=== PATIENT | female | born 1940 | race Hispanic/Latino ===

== ENCOUNTER 2024-06-17 16:51 | Inpatient (IN) | payer MEDICARE ==
[~2024-06-17] VITALS: Ht 162.6 cm; Wt 47.6 kg
[2024-06-17 17:40] LABS: BASOPHILS # (AUTO) 0.04 K/uL (0.00-0.20); BASOPHILS % (AUTO) 0.6 % (0.0-5.0); EOSINOPHILS # (AUTO) 0.22 K/uL (0.00-0.70); EOSINOPHILS % (AUTO) 3.5 % (0.0-8.0); HEMATOCRIT 37.3 % (36-48); IMMATURE GRANULOCYTE ABSOLUTE 0.02 K/uL (0-1); LYMPHOCYTES # (AUTO) 1.8 K/uL (1.0-4.8); LYMPHOCYTES % (AUTO) 27.8 % (21.0-51.0); MEAN CORPUSCULAR HEMOGLOBIN 32.1 pg (27.0-33.0); MEAN CORPUSCULAR HGB CONC 32.2 g/dL (32.0-36.0); MEAN CORPUSCULAR VOLUME 99.7 fL (79-99); MONOCYTES # (AUTO) 0.5 K/uL (0.1-1.0); NEUTROPHILS # (AUTO) 3.8 K/uL (1.8-7.7); NEUTROPHILS % (AUTO) 59.8 % (40.0-77.0); PLATELET COUNT (AUTO) 178 K/uL (130-400); RED BLOOD CELL COUNT(AUTO) 3.74 MIL/uL (4.00-5.50); RED CELL DISTRIBUTION WIDTH 13.6 % (11.0-15.5); WHITE BLOOD COUNT (AUTO) 6.4 K/uL (4.8-10.8)
--- NOTE | 2024-06-17 17:44 | EKG ---
[facility] Test Date: 2024-06-17 Test Time: 16:58:30 Pat Name: RAMA NAIR Department: ED Room: 426 Gender: F Solution Specialist: [id number] Requested By: AMEE MITCHELL Order Number: [id number] Reading MD: Solomon Mann Measurements Intervals [place] Rate: 73 P: 74 NV: 136 QRS: 126 QRSD: 95 T: 147 QT: 410 QTc: 454 Interpretive Statements Atrial-sensed ventricular-paced rhythm Biventricular paced rhythm No previous ECG available for comparison Electronically Signed On 06-18-2024 13:16:06 CDT by Solomon Mann Please click the below link to view image of tracing.
--- NOTE | 2024-06-17 17:44 | ERN ---
General Chief Complaint: AICD FIRED OR SHOCKED Stated Complaint: SHOCK FROM PACEMAKER Time Seen by MD: 17:04 History of Present Illness Initial Comments Ms. Chacon is a very pleasant 84-year-old female significant past medical history of heart failure with a reduced ejection fraction status post ICD placement and prior MS in 2012 presented to the ED after reported ICD shock. The event occurred approximately 1 hour prior to arrival when she was about to eat a hamburger. She states she felt a shock in her hand and was not associated with chest pain, shortness of breath, palpitations syncope. She denies any trauma or dizziness or neurological symptoms. She says this is her 2nd AICD with the most recent device placed only a few months ago with a new battery. She is currently visiting from [facility] and follows with Dr. Hwang of [facility]. Patient has had no recent medication changes. Allergies: Coded Allergies: No Known Drug Allergies (Unverified Allergy, Unknown, 06/18/24) Home Meds Active Scripts Amiodarone HCl (Amiodarone HCl) 200 Mg Tablet, 200 MG PO BID, #60 TAB 3 Refills Prov:HI WHITE MD 06/19/24 Reported Medications Apixaban (Eliquis) 2.5 Mg Tablet, 1 TAB PO BID for 30 Days, #60 TAB 0 Refills 06/18/24 Cholecalciferol (Vitamin D3) (Vitamin D3) 250 Mcg (67016 Unit) Capsule, 1 CAP PO DAILY for 30 Days, #30 CAP 0 Refills 06/18/24 Metoprolol Succinate (Metoprolol Succinate) 50 Mg Tab.er.24h, 1 TAB PO BID for 30 Days, #30 TAB 0 Refills 06/18/24 Sertraline HCl (Sertraline HCl) 50 Mg Tablet, 1 TAB PO DAILY for 30 Days, #30 TAB 0 Refills 06/18/24 Aspirin (Aspirin EC) 81 Mg Tablet., 1 TAB PO DAILY for 30 Days, #30 TAB 0 Refills 06/18/24 Sacubitril/Valsartan (Entresto 24 mg-26 mg Tablet) 24 Mg-26 Mg Tablet, 1 TAB PO BID for 30 Days, #60 TAB 0 Refills 06/18/24 Empagliflozin (Jardiance) 10 Mg Tablet, 10 MG PO DAILY, TAB 06/18/24 Ubidecarenone (Coq10) 50 Mg Tab.chew, 100 MG PO AM, TAB.CHEW 06/18/24 Atorvastatin Calcium (LIPITOR) 80 Mg Tablet, 1 TAB PO DAILY for 30 Days, #30 TAB 0 Refills 06/18/24 Gabapentin (Gabapentin) 100 Mg Capsule, 300 MG PO TID, CAP 06/18/24 Ranolazine (Ranolazine ER) 500 Mg Tab.er.12h, 1 TAB PO BID for 30 Days, #60 TAB 0 Refills 06/18/24 Past Medical History Past Medical History: CHF, High Cholesterol, Heart Disease, Hypertension, MS Past Surgical History: Hysterectomy, Pacer/AICD ROS Dictation Constitutional: Negative for fever,chills, and weight loss Eyes: Negative for injury, pain,redness, and discharge ENT: Negative for injury,pain or swelling Cardiovascular: Positive AICD shock today Abdomen/GI: Negative for abdominal pain, nausea, vomiting, diarrhea, and constipation Back: Negative for injury and pain : Negative for injury, bleeding and discharge MS/Extremity: Negative for injury and deformity Skin: Negative for rash, and discoloration Neuro: Negative for headache, weakness, numbness, tingling, and seizure Psych: Negative for suicide ideation, homicidal ideation, and hallucinations Physical Exam Physical Exam Dictation General: awake, alert, NAD Head/Face: Normocephalic, atraumatic Eyes: PERRL, EOMI, vision at baseline ENT: oral cavity clear, TMs clear, no signs of infection Neck: Trachea midline, supple, no nuchal rigidity Cardiovascular: RRR, normal S1/S2, No MRGs, no JVD, AICD and left chest no t rauma camacho at the site of the ICD Respiratory: CTAB, no respiratory distress, No rales or wheezes Abdomen: Soft, non-tender, non-distended, normal bowel sounds, no guarding or rebound. Skin: Warm, dry, normal turgor, no rash MS/Extremity: Pulses equal, no cyanosis, neurovascular intact, FROM Neuro: COAx4, GCS 15, strength 5/5, CN 2-12 intact, normal cerebellar exam, normal gait, Psych: Normal behavior, mood, and affect normal Results Laboratory and Microbiology Lab and Micro Result Laboratory Tests Test 06/17/24 17:28 White Blood Count 6.4 K/uL (4.8-10.8) Red Blood Count 3.74 MIL/uL (4.00-5.50) L Hemoglobin 12.0 g/dL (12.0-16.0) Hematocrit 37.3 % (36-48) Mean Corpuscular Volume 99.7 fL (79-99) H Mean Corpuscular Hemoglobin 32.1 pg (27.0-33.0) Mean Corpuscular Hemoglobin Concent 32.2 g/dL (32.0-36.0) Red Cell Distribution Width 13.6 % (11.0-15.5) Platelet Count 178 K/uL (130-400) Mean Platelet Volume 9.5 fL (7.5-10.5) Immature Granulocyte % (Auto) 0.3 % (0-1) Neutrophils (%) (Auto) 59.8 % (40.0-77.0) Lymphocytes (%) (Auto) 27.8 % (21.0-51.0) Monocytes (%) (Auto) 8.0 % (3.0-13.0) Eosinophils (%) (Auto) 3.5 % (0.0-8.0) Basophils (%) (Auto) 0.6 % (0.0-5.0) Neutrophils # (Auto) 3.8 K/uL (1.8-7.7) Lymphocytes # (Auto) 1.8 K/uL (1.0-4.8) Monocytes # (Auto) 0.5 K/uL (0.1-1.0) Eosinophils # (Auto) 0.22 K/uL (0.00-0.70) Basophils # (Auto) 0.04 K/uL (0.00-0.20) Absolute Immature Granulocyte (auto 0.02 K/uL (0-1) Nucleated Red Blood Cells 0.0 % (0.0-0.19) Sodium Level 141 mmol/L (136-145) Potassium Level 4.0 mmol/L (3.5-5.1) Chloride Level 107 mmol/L (101-111) Carbon Dioxide Level 28 mmol/L (21-32) Blood Urea Nitrogen 14 mg/dL (7-18) Creatinine 1.0 mg/dL (0.5-1.0) Glomerular Filtration Rate Calc 55 mL/min (>90) Random Glucose 97 mg/dL (70-105) Total Calcium 8.3 mg/dL (8.5-10.1) L Total Creatine Kinase 67 U/L (21-232) Troponin I High Sensitivity 18.0 ng/L (4-50) B-Type Natriuretic Peptide 237 pg/mL (0-100) H MDM MDM: Differential diagnosis: Arrhythmia, inappropriate shock, new coronary event Rationale: Tests considered and ordered secondary to shared decision making include: Previous outside records reviewed: Old ER visits. Risk of complication and/or morbidity or mortality of patient management: None Medications-Per medication reconciliation Need for hospitalization: Patient does not meet criteria for hospitalization. Need for emergency major/minor surgery: No There are no social concerns with this patient. Prescription drug management Prescriptions will include symptomatic care Patient's prior external medical records from other ER visits were reviewed by me as indicated. Prior testing and results from previous visits were reviewed. Prior tests were taken into account with medical decision making and resource utilization, independent historian/historians were used to obtain complete medical history. I independently interpreted the test that were performed, results were reviewed by me and considered findings on radiology if ordered. Medical management and examination interpretation discussions were had by me with other qualified healthcare professionals as indicated for the patient's care. ED Course Orders Procedure Category Date Status Time O2 Nc Keep Sats CPOE 06/17/24 Transmitted Greater 92% 17:12 Notify Md: Spo2 < 88% CPOE 06/17/24 Transmitted 17:12 Cbc With Differential LAB 06/17/24 Complete 17:12 B-Type Natriuretic LAB 06/17/24 Complete Peptide 17:12 Cardiac Panel LAB 06/17/24 Complete 17:12 Chest 1vw RAD 06/17/24 Resulted 17:12 12 Lead Ekg Tracing- EKG 06/17/24 Resulted Technical 17:12 Basic Metabolic Panel LAB 06/17/24 Complete 17:12 Edm Admit Bridge Order ADM 06/17/24 Transmitted 23:01 Vital Signs Date Time Temp Pulse Resp B/P (MAP) Pulse Ox O2 Delivery O2 Flow Rate FiO2 06/17/24 21:46 76 15 149/62 98 Room Air* 0 21 06/17/24 21:22 98.6 65 17 124/59 98 Room Air* 0 21 06/17/24 20:09 98.6 70 19 128/59 96 Room Air* 0 21 06/17/24 17:42 98.1 67 18 131/64 97 Room Air* 0 21 06/17/24 17:01 98.2 63 17 146/66 97 Room Air 0 7:00 p.m. patient was signed out to me by a.m. physician. This is an 84-year-old female with known history of atrial fibrillation and flutter on Eliquis, metoprolol and Entresto apparently was at dinner with her and eating a hamburger when she experienced an ICD shock. No syncope chest pain. No shortness of breath no other symptoms of nausea vomitings diaphoresis Vital signs are 98.2/63/17/140 6/66 and 97% on room air Her chronic medical problems include hypertension, coronary artery disease, congestive heart failure, hypercholesterolemia and history of smoking. Labs reviewed CBC BNP 7 are within normal limits brain natriuretic peptide is 237 troponins are negative chest x-ray is unremarkable for any acute infiltrate EKG showed rate controlled with heart rates of around 63-66. Interrogation of the cardiac device was done which showed an episode of atrial fibrillation and a flutter with rapid ventricular response transiently that triggered the episode of shock. Although it is recognized it as a VFib. Patient received gentle hydration and all electrolytes are with a normal limits. 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 I answered all the questions. Patient returned within an hour and a half stating that she received additional ICD shocks and a decision was made to admit her to the hospital 11:00 p.m.-patient accepted by [facility] mid-level provider for admission and further management Problem List Problem Lists: (1) Atrial fibrillation and flutter (2) Inappropriate discharge of implantable cardioverter-defibrillator (ICD) DX & DISP Disposition: Inpatient Departure Impression: Primary Impression: Atrial fibrillation and flutter Additional Impression: Inappropriate discharge of implantable cardioverter- defibrillator (ICD) Condition: Stable Scripts Amiodarone HCl (Amiodarone HCl) 200 Mg Tablet 200 MG PO BID, #60 TAB 3 Refills Prov: HI WHITE MD 06/19/24 Additional Instructions: Patient was informed of all the diagnostic labs and procedures conducted in the emergency room today and demonstrated understanding of the results. I personally reviewed and interpreted all the diagnostic exams performed in the ER today. The patient will be admitted to the hospital for further treatment and evaluation. Disposition-admit to facility Condition-stable/guarded Course-uncertain at this time Pain status-decreased Assessment-exam unchanged Admission Certification- I certify that the patients status is appropriate and is based on my best clinical judgment and the patient's condition as documented in the medical records Referrals: SELF,REFERRAL (PCP) AMEE MITCHELL MD June 17, 2024 17:44 YESSI LYN MD June 17, 2024 20:43
[2024-06-17 18:01] LABS: B-TYPE NATRIURETIC PEPTIDE 237 pg/mL (0-100)
--- NOTE | 2024-06-17 18:16 | HMCIMG ---
Exam Type: CHEST 1VW Clinical Information: Dyspnea/SOB Comparison: None Findings: The lungs are clear of infiltrates. The heart is enlarged in size. The bony and soft tissue structures of the chest are unremarkable. Left cardiac pacemaker is noted with leads in place. Impression: Clear lungs.
--- NOTE | 2024-06-17 19:08 | NUR ---
[facility] ROMO WAS CALLED IN REFERNECE TO US BEING UNABLE TO INTERROGATE HER DEVICE D/T THE DEVICE NOT PICKING UP WIFI FOR A REPORT TO GENERATE. HE SAID HE WOULD BE IN SHORTLY TO ASSESS THE SITUATION AND DEVICE WELL AICD.
--- NOTE | 2024-06-17 19:34 | NUR ---
[facility] PACER REP IN ROOM TO INTERROGATE DEVICE
--- NOTE | 2024-06-17 21:40 | NUR ---
PATIENT REPORTS DEFIBRILATOR FIRED AGAIN AFTER BEING DISCHARGED SHE WAS GETTING INTO CAR. LIFTED HER LEFT ARM AND FELT IT GO OFF. REPORTS LAST EPISODE HAPPENED WHEN SHE LEFTED HER ARM TO TAKE A BITE OF A HAMBURGER
--- NOTE | 2024-06-17 23:00 | HP ---
[facility] HISTORY AND PHYSICAL Date of Service: June 17, 2024 Time of Service: 23:00 PCP: Self-referral HISTORY OF PRESENT ILLNESS: This is an 84-year-old female a resident from [facility] a reliable historian with past medical history of CHF with AICD, hypertension, hyperlipidemia and DC/ CAD with cardiac stent X3 in 2012 who presents to the ED for complaints of AICD shock around 4 pm today when she tried to eat hamburger using her left upper extremity she felt the shock in her hand .As patient was going home from ER visit she felt the shock again as she was using her left upper extremity to reach for something in the car and the shock was painful she said so she decided to come back to the ED,thus prompted this admission.Patient reports this is the second AICD with the most recent device placed few months ago with a new battery.Patient reports 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 Seen and examined patient in the ER awake,alert and coherent, appears comfortable. Patient denies chest pain, palpitation, shortness for breath, syncope, nausea and vomiting. Latest vital signs temperature 98.4, heart rate 72, blood pressure 148/79 saturation 96% on room air. Labs CBC unremarkable BNP 237 the rest of the chemistries unremarkable. EKG result revealed atrial sensed ventricular paced rhythm, ventricular paced rhythm heart rate 73. Chest x-ray result is normal. While in the ER patient AICD was reportedly interrogated which showed an episode of atrial fibrillation and a flutter with RVR that triggers episode of shock. We will admit patient for further medical management. REVIEW OF SYSTEMS CONSTITUTIONAL: Denies fevers, chills, or night sweats. No unintentional weight loss reported. NEUROLOGICAL: Denies headache, amaurosis fugax, motor weakness, sensory deficit, vertigo/spinning sensation, gait abnormalities, or tremors. ENT: No hearing loss, otalgia, otorrhea, rhinitis, rhinorrhea, hoarseness, or sore throat. CARDIOVASCULAR: Denies any exertional angina, dyspnea on exertion, orthopnea, paroxysmal nocturnal dyspnea, palpitations, life-threatening arrhythmias, claudication. PULMONARY: Denies any shortness of breath, cough, phlegm/sputum, hemoptysis, pleuritic chest pain. SLEEP: Denies morning headaches, daytime somnolence or napping. Denies difficulty falling asleep, staying asleep, waking from sleep. Denies knowledge of snoring. GASTROINTESTINAL: Denies any type of dysphagia to either liquids or solids. Denies nausea, vomiting, pyrosis, early satiety, abdominal pain, diarrhea, constipation, or changes in stool consistency or caliber. Denies coffee-ground emesis, hematemesis, hematochezia, or melanotic stools. GENITOURINARY: Denies frequency, urgency, nocturia, hematuria or incontinence (Storage/Irritative symptoms.) Low urinary stream, straining to void, urinary i ntermittency or hesitancy, splitting of the voiding stream, terminal dribbling. ENDOCRINOLOGIC: Denies polyuria, polydipsia, polyphagia or heat/cold intolerances. HEMATOLOGIC: Denies thrombophilia/previous clots, or coagulopathy/bleeding disorders. ONCOLOGIC: Denies personal history of malignancy. DERMATOLOGIC: Denies rashes or pruritus. PSYCHIATRIC: Denies any suicidal or homicidal ideation. Denies hallucinations. PAST MEDICAL HISTORY: [ CHF hypertension, hyperlipidemia and DC/ CAD with cardiac stent X3 in 2012 ] PAST SURGICAL HISTORY: [ Pacer/AICD, cardiac stent x3, hysterectomy] PAST SOCIAL HISTORY: [ Patient lives with . Patient is from [facility]. Patient denies alcohol tobacco and recreational drug use ] FAMILY HISTORY: [Noncontributory ] Coded Allergies: No Known Drug Allergies (Unverified Allergy, Unknown, 06/18/24) PHYSICAL EXAM GENERAL APPEARANCE: The patient is awake, alert, and oriented, in no acute cardiopulmonary distress. NEUROLOGICAL: Cranial nerves II-XII grossly intact. Motor is 5/5 in bilateral upper and lower extremities proximal to distal. No sensory deficits. HEENT: Face is symmetric. Pupils are equal and reactive. Extraocular movements are intact. NECK: Supple. No JVD. No thyromegaly. No submental, submandibular, pre- /postauricular, occipital or supraclavicular lymphadenopathy. CHEST: Normal chest expansion. No Telemetry. LUNGS: Absence of any rales, rhonchi or any wheezing. CARDIOVASCULAR: Regular. S1 and S2 normal. No appreciable rubs, murmurs or gallops. ABDOMEN: Soft, nontender, and nondistended. There is no rebound, voluntary guarding, or rigidity. : Deferred. No Osorio. EXTREMITIES: Non-edematous and not cyanotic. No clubbing. Good capillary refill. SKIN: No skin breakdown. Vital Sign (Last 24 Hours) 06/17/24 06/17/24 21:22 21:46 Temp 98.6 Pulse 76 Resp 15 B/P (MAP) 149/62 Pulse Ox 98 O2 Delivery Room Air* O2 Flow Rate 0 FiO2 21 LABS: Laboratory: Test 06/17/24 17:28 Range/Units White Blood Count 6.4 4.8-10.8 K/uL Red Blood Count 3.74 L 4.00-5.50 MIL/uL Hemoglobin 12.0 12.0-16.0 g/dL Hematocrit 37.3 36-48 % Mean Corpuscular Volume 99.7 H 79-99 fL Mean Corpuscular Hemoglobin 32.1 27.0-33.0 pg Mean Corpuscular Hemoglobin Concent 32.2 32.0-36.0 g/dL Red Cell Distribution Width 13.6 11.0-15.5 % Platelet Count 178 130-400 K/uL Mean Platelet Volume 9.5 7.5-10.5 fL Immature Granulocyte % (Auto) 0.3 0-1 % Neutrophils (%) (Auto) 59.8 40.0-77.0 % Lymphocytes (%) (Auto) 27.8 21.0-51.0 % Monocytes (%) (Auto) 8.0 3.0-13.0 % Eosinophils (%) (Auto) 3.5 0.0-8.0 % Basophils (%) (Auto) 0.6 0.0-5.0 % Neutrophils # (Auto) 3.8 1.8-7.7 K/uL Lymphocytes # (Auto) 1.8 1.0-4.8 K/uL Monocytes # (Auto) 0.5 0.1-1.0 K/uL Eosinophils # (Auto) 0.22 0.00-0.70 K/uL Basophils # (Auto) 0.04 0.00-0.20 K/uL Absolute Immature Granulocyte (auto 0.02 0-1 K/uL Nucleated Red Blood Cells 0.0 0.0-0.19 % Sodium Level 141 136-145 mmol/L Potassium Level 4.0 3.5-5.1 mmol/L Chloride Level 107 101-111 mmol/L Carbon Dioxide Level 28 21-32 mmol/L Blood Urea Nitrogen 14 7-18 mg/dL Creatinine 1.0 0.5-1.0 mg/dL Glomerular Filtration Rate Calc 55 >90 mL/min Random Glucose 97 70-105 mg/dL Total Calcium 8.3 L 8.5-10.1 mg/dL Total Creatine Kinase 67 21-232 U/L Troponin I High Sensitivity 18.0 4-50 ng/L B-Type Natriuretic Peptide 237 H 0-100 pg/mL DIAGNOSTICS / RADIOLOGY: [ ] ASSESSMENT: AICD shock evaluation POA Atrial fibrillation with RVR and atrial flutter POA Coronary artery disease with cardiac stent x3 POA Pacer /AICD status POA CHF POA Hypertension POA Hyperlipidemia POA PLAN: We will admit patient in medical telemetry We will start on heart healthy diet We will replace electrolytes as needed per protocol We will start on famotidine 20 mg p.o. daily for GI prophylaxis We will add prn medication for fever,pain,cough , nausea and vomiting We will reconcile home meds once medlist available AICD interrogated in the ER We will seek Cardiology consultation We will request labs in am Further orders to follow depending on above results Case discussed with attending physician and came up with above treatment and plan of care. ADVANCED CARE PLANNING 1. Which of the following were discussed? Hospice Care - No Therapeutic options - Yes Advance Directives - No Other discussions - 2. Discussed with who? Patient 3. Voluntary nature of this service was explained to the patient? Yes 4. Amount of time spent - ___22____ 5. Reviewed by Physician? (if this service was performed by NPP) Yes Patient seen and examined by me. Agree with note by COGNOS DEVELOPER SEE ADDITIONAL ORDERS PER CHART DISCUSSED WITH NURSING STAFF MARYJANE STONE NP June 17, 2024 23:00
--- NOTE | 2024-06-17 23:50 | NUR ---
PATIENT DID NOT BRING HOME MEDICATIONS, FAMILY TO BRING
[2024-06-18] VITALS (12 sets, daily range): BP systolic 114–156; BP diastolic 56–82; PULSE 60–93; RESP 16–22; TEMP 97.6–98.6; O2SAT 96–100
[2024-06-18] MEDS ORDERED: NITROGLYCERIN 0.4 MG SL TAB SL PRN (01:00)
[2024-06-18] MEDS ORDERED: acetaMINOPHEN 325 MG TAB PO PRN ×2 (01:00)
[2024-06-18] MEDS ORDERED: ondanSETRON 4MG INJ IV PRN (01:00)
--- NOTE | 2024-06-18 01:58 | NUR ---
NURSE NOTE RECEIVED REPORT FROM PALLAVI ED NURSE, AWAITING PATIENT ARRIVAL TO UNIT
[2024-06-18 05:24] LABS: BASOPHILS # (AUTO) 0.06 K/uL (0.00-0.20); EOSINOPHILS # (AUTO) 0.18 K/uL (0.00-0.70); EOSINOPHILS % (AUTO) 3.1 % (0.0-8.0); HEMATOCRIT 35.6 % (36-48); IMMATURE GRANULOCYTE ABSOLUTE 0.01 K/uL (0-1); LYMPHOCYTES # (AUTO) 2.4 K/uL (1.0-4.8); LYMPHOCYTES % (AUTO) 40.4 % (21.0-51.0); MEAN CORPUSCULAR HEMOGLOBIN 32.2 pg (27.0-33.0); MEAN CORPUSCULAR HGB CONC 32.9 g/dL (32.0-36.0); MEAN CORPUSCULAR VOLUME 98.1 fL (79-99); MONOCYTES # (AUTO) 0.5 K/uL (0.1-1.0); MONOCYTES % (AUTO) 8.6 % (3.0-13.0); NEUTROPHILS # (AUTO) 2.7 K/uL (1.8-7.7); NEUTROPHILS % (AUTO) 46.7 % (40.0-77.0); PLATELET COUNT (AUTO) 182 K/uL (130-400); RED BLOOD CELL COUNT(AUTO) 3.63 MIL/uL (4.00-5.50); RED CELL DISTRIBUTION WIDTH 13.8 % (11.0-15.5); WHITE BLOOD COUNT (AUTO) 5.8 K/uL (4.8-10.8)
[2024-06-18 05:42] LABS: ALBUMIN 3.1 g/dL (3.5-5.0); BILIRUBIN,TOTAL 0.5 mg/dL (0.2-1.0); CREATININE 0.9 mg/dL (0.5-1.0); MAGNESIUM 2.1 mg/dL (1.80-2.40); TOTAL PROTEIN, SERUM 6.2 g/dL (6.0-8.3)
[2024-06-18] MEDS: FAMOTIDINE 20MG TAB PO SCH (08:42)
--- NOTE | 2024-06-18 11:35 | CONS ---
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 She presented to the emergency department after receiving a shock from ICD. She was in the emergency department and device interrogation was performed revealing inappropriate shock for atrial fibrillation rapid ventricular response. Electrolytes were checked and she was discharged home. She was in the parking lot in her vehicle with her and received one more shock. She returned to the emergency department and was admitted for further evaluation. Potassium this morning 4.0 magnesium of 2.10, troponin 18 and 42 with a BNP of 237. She has a history of myocardial infarction in 2012 with subsequent stent placement x3 believes to the LAD. Presumed ischemic cardiomyopathy and in [address] [place] dual-chamber permanent pacemaker defibrillator Quadra assura. Home medications include Entresto, furosemide, metoprolol succinate, Farxiga, spironolactone, Eliquis. Currently asymptomatic on telemetry Sr with PVcs. Review of systems: 14 point review of systems performed pertinent positives and negatives discussed in HPI Past medical history: Positive for coronary artery disease, myocardial infarction 2013, ischemic cardiomyopathy, COPD. Negative for CVA TIA no PE no DVT no liver kidney or thyroid disease. Past surgical history: Three cardiac stents to LAD?, placement of [employer] Francisco dual- chamber permanent pacemaker defibrillator Quadra assura 2012, hysterectomy. Allergies: No known allergies Social history: Patient denies tobacco alcohol or illicit drug use Family history: Noncontributory Review of blood work: Sodium 142, potassium 4.0, magnesium of 2.10 BUN of 14 creatinine of 0.9 and a GFR of 63. Troponin 18, 42. CBC white blood cells 5.8, hemoglobin 11.7, hematocrit of 35.6 and platelets of 182. Physical exam: Blood pressure 114/59 heart rate of 72 beats per minute and regular normal S1-S2 no rubs gallops noted. Neck is supple no jugular vein distention no carotid bruits. Bilateral breath sounds are clear to auscultation. Lower extremities no edema no cyanosis. Patient is alert awake and oriented. All others within normal limits. Assessment: Inappropriate shocks delivered x2 for atrial fibrillation rapid ventricular response History of atrial fibrillation on chronic anticoagulation with Eliquis 2.[address] Francisco dual-chamber permanent pacemaker defibrillator Mitzi gloria CAD, [place] 2013 subsequent stents x3 LAD? Ischemic CM? COPD Plan: 84-year-old female presented to the emergency department for further evaluation. She denies chest pain no shortness of breath dizziness syncope or palpitations. Electrolytes have been checked and within normal limits. She is visiting from [facility] and gives a history of CAD with myocardial infarction, atrial fibrillation and [place] device. Device interrogation was performed yesterday at 7:35 p.m. demonstrated inappropriate shocks for atrial fibrillation/atrial flutter with rapid ventricular response. We will have device rep increase rate cut off to 165bpm from 155bpm. We can resume home medications and add amiodarone drip per protocol. She can start amiodarone 400mg PO BiD and if stable we can discharge tomorrow on amiodarone 200mg BID. ATTESTATION BY PHYSICIAN I have seen and examined the patient. I reviewed the documentation, medical decision making, and treatment plan as noted by the mid-level provider above. I agree with the findings and plan of care. SOLOMON MANN MD, [facility] June 18, 2024 11:35 SOLOMON MANN MD June 18, 2024 12:55
[2024-06-18] MEDS ORDERED: AMIOdarone 900MG VIAL 540 MG in DEXTROSE 5%-WATER 300 ML IV SCH (12:00)
[2024-06-18] MEDS ORDERED: AMIOdarone 900MG VIAL 360 MG in DEXTROSE 5%-WATER 200 ML IV SCH (12:00)
[2024-06-18] MEDS ORDERED: AMIOdarone 900MG VIAL 150 MG in DEXTROSE 5%-WATER 100 ML IV SCH (12:00)
[2024-06-18] MEDS ORDERED: AMIODARONE 360MG/200ML D5W(1MG/MIN) IV SCH (13:00)
[2024-06-18] MEDS: AMIOdarone 200 MG TABLET PO ONE (13:08)
[2024-06-18] MEDS: metOPROLol sucCINATE 50 MG TAB.SR.24H PO SCH (13:08)
[2024-06-18] MEDS: APIXaban 2.5 MG TABLET PO SCH (13:08)
[2024-06-18] MEDS ORDERED: ATOR40TA69 PO (13:17)
[2024-06-18] MEDS ORDERED: EMPA10TA PO (13:17)
[2024-06-18] MEDS ORDERED: GABA-529 PO (13:17)
[2024-06-18] MEDS ORDERED: RANO500T6 PO (13:17)
[2024-06-18] MEDS ORDERED: METO-391 PO (13:17)
[2024-06-18] MEDS ORDERED: ASPI-1443 PO (13:17)
[2024-06-18] MEDS ORDERED: APIX2.5T PO (13:17)
[2024-06-18] MEDS ORDERED: CHOL-4 PO (13:17)
[2024-06-18] MEDS ORDERED: SERT-439 PO (13:17)
[2024-06-18] MEDS ORDERED: SACU1TAB PO (13:17)
[2024-06-18] MEDS ORDERED: UBID50TA3 PO (13:17)
--- NOTE | 2024-06-18 15:32 | PN ---
[facility] PROGRESS NOTE Date of Service: June 18, 2024 Time of Service: 15:31 SUBJECTIVE: [ ] 06/18 patient was seen and examined case discussed with the RN. She was doing well denies any chest pain or shortness for breath. Cardiology the contemplating on starting amiodarone infusion REVIEW OF SYSTEMS CONSTITUTIONAL: Denies fevers, chills, or night sweats. No unintentional weight loss reported. NEUROLOGICAL: Denies headache, amaurosis fugax, motor weakness, sensory deficit, vertigo/spinning sensation, gait abnormalities, or tremors. ENT: No hearing loss, otalgia, otorrhea, rhinitis, rhinorrhea, hoarseness, or sore throat. CARDIOVASCULAR: Denies any exertional angina, dyspnea on exertion, orthopnea, paroxysmal nocturnal dyspnea, palpitations, life-threatening arrhythmias, claudication. PULMONARY: Denies any shortness of breath, cough, phlegm/sputum, hemoptysis, pleuritic chest pain. SLEEP: Denies morning headaches, daytime somnolence or napping. Denies difficulty falling asleep, staying asleep, waking from sleep. Denies knowledge of snoring. GASTROINTESTINAL: Denies any type of dysphagia to either liquids or solids. Denies nausea, vomiting, pyrosis, early satiety, abdominal pain, diarrhea, constipation, or changes in stool consistency or caliber. Denies coffee-ground emesis, hematemesis, hematochezia, or melanotic stools. GENITOURINARY: Denies frequency, urgency, nocturia, hematuria or incontinence (Storage/Irritative symptoms.) Low urinary stream, straining to void, urinary intermittency or hesitancy, splitting of the voiding stream, terminal dribbling. ENDOCRINOLOGIC: Denies polyuria, polydipsia, polyphagia or heat/cold intolerances. HEMATOLOGIC: Denies thrombophilia/previous clots, or coagulopathy/bleeding disorders. ONCOLOGIC: Denies personal history of malignancy. DERMATOLOGIC: Denies rashes or pruritus. PSYCHIATRIC: Denies any suicidal or homicidal ideation. Denies hallucinations. PHYSICAL EXAM GENERAL APPEARANCE: The patient is awake, alert, and oriented, in no acute cardiopulmonary distress. NEUROLOGICAL: Cranial nerves II-XII grossly intact. Motor is 5/5 in bilateral upper and lower extremities proximal to distal. No sensory deficits. HEENT: Face is symmetric. Pupils are equal and reactive. Extraocular movements are intact. NECK: Supple. No JVD. No thyromegaly. No submental, submandibular, pre- /postauricular, occipital or supraclavicular lymphadenopathy. CHEST: Normal chest expansion. No Telemetry. LUNGS: Absence of any rales, rhonchi or any wheezing. CARDIOVASCULAR: Regular. S1 and S2 normal. No appreciable rubs, murmurs or gallops. ABDOMEN: Soft, nontender, and nondistended. There is no rebound, voluntary guarding, or rigidity. : Deferred. No Osorio. EXTREMITIES: Non-edematous and not cyanotic. No clubbing. Good capillary refill. SKIN: No skin breakdown. Vital Signs (last 8hr) Date Time Temp Pulse Resp B/P (MAP) Pulse Ox O2 Delivery O2 Flow Rate FiO2 06/18/24 11:33 98.6 70 16 118/59 98 Room Air 06/18/24 08:42 100 Room Air* 0 21 06/18/24 08:07 98.6 72 20 114/59 100 Room Air LABS: Laboratory: Test 06/18/24 04:56 06/17/24 17:28 Range/Units White Blood Count 5.8 4.8-10.8 K/uL Red Blood Count 3.63 L 4.00-5.50 MIL/uL Hemoglobin 11.7 L 12.0-16.0 g/dL Hematocrit 35.6 L 36-48 % Mean Corpuscular Volume 98.1 79-99 fL Mean Corpuscular Hemoglobin 32.2 27.0-33.0 pg Mean Corpuscular Hemoglobin Concent 32.9 32.0-36.0 g/dL Red Cell Distribution Width 13.8 11.0-15.5 % Platelet Count 182 130-400 K/uL Mean Platelet Volume 10.0 7.5-10.5 fL Immature Granulocyte % (Auto) 0.2 0-1 % Neutrophils (%) (Auto) 46.7 40.0-77.0 % Lymphocytes (%) (Auto) 40.4 21.0-51.0 % Monocytes (%) (Auto) 8.6 3.0-13.0 % Eosinophils (%) (Auto) 3.1 0.0-8.0 % Basophils (%) (Auto) 1.0 0.0-5.0 % Neutrophils # (Auto) 2.7 1.8-7.7 K/uL Lymphocytes # (Auto) 2.4 1.0-4.8 K/uL Monocytes # (Auto) 0.5 0.1-1.0 K/uL Eosinophils # (Auto) 0.18 0.00-0.70 K/uL Basophils # (Auto) 0.06 0.00-0.20 K/uL Absolute Immature Granulocyte (auto 0.01 0-1 K/uL Nucleated Red Blood Cells 0.0 0.0-0.19 % Sodium Level 142 136-145 mmol/L Potassium Level 4.0 3.5-5.1 mmol/L Chloride Level 108 101-111 mmol/L Carbon Dioxide Level 28 21-32 mmol/L Blood Urea Nitrogen 14 7-18 mg/dL Creatinine 0.9 0.5-1.0 mg/dL Glomerular Filtration Rate Calc 63 >90 mL/min Random Glucose 92 70-105 mg/dL Total Calcium 8.3 L 8.5-10.1 mg/dL Magnesium Level 2.10 1.80-2.40 mg/dL Total Bilirubin 0.5 0.2-1.0 mg/dL Aspartate Amino Transf (AST/SGOT) 26 10-37 U/L Alanine Aminotransferase (ALT/SGPT) 15 12-78 U/L Alkaline Phosphatase 83 50-136 U/L Troponin I High Sensitivity 42 4-50 ng/L Total Protein 6.2 6.0-8.3 g/dL Albumin 3.1 L 3.5-5.0 g/dL Total Creatine Kinase 67 21-232 U/L B-Type Natriuretic Peptide 237 H 0-100 pg/mL Current Medications Medications (Trade) Dose Ordered Sig/Layla Route PRN Reason Start Time Stop Time Status Last Admin Dose Admin Acetaminophen (TYLenol 325MG TAB) 650 mg Q4H PRN PO MILD PAIN (1-3) 06/18/24 01:00 07/18/24 00:59 Acetaminophen (TYLenol 325MG TAB) 650 mg Q6H PRN PO TEMPERATURE GREATER THAN 101.5 06/18/24 01:00 07/18/24 00:59 Amiodarone HCl (pacERONE 200MG) 400 mg BID PO 06/18/24 21:00 07/18/24 20:59 Amiodarone HCl 150 mg/Dextrose 100 ml @ 0 mls/hr PROTOCOL IV 06/18/24 13:00 07/18/24 12:59 Amiodarone HCl 150 mg/Dextrose 103 ml @ 618 mls/hr ONCE IV 06/18/24 12:00 06/18/24 11:53 DC Amiodarone HCl 360 mg/Dextrose 200 ml @ 33.333 mls/ hr PROTOCOL IV 06/18/24 13:00 07/18/24 12:59 Amiodarone HCl 360 mg/Dextrose 207.2 ml @ 33.3 mls/hr AD IV 06/18/24 12:00 06/18/24 11:53 DC Amiodarone HCl 540 mg/Dextrose 300 ml @ 16.667 mls/ hr PROTOCOL IV 06/18/24 20:00 07/18/24 19:59 Amiodarone HCl 540 mg/Dextrose 310.8 ml @ 16.7 mls/hr [id number] IV 06/18/24 12:00 06/18/24 11:53 DC Apixaban (EliquIS 2.5 mg) 2.5 mg BID PO 06/18/24 12:00 07/18/24 11:59 06/18/24 13:08 2.5 MG Famotidine (Pepcid 20mg Tab) 20 mg Q24H PO 06/18/24 09:00 07/18/24 08:59 06/18/24 08:42 20 MG Furosemide (LASix 20MG TAB) 20 mg DAILY PO 06/19/24 09:00 07/19/24 08:59 Metoprolol Succinate (TopROL XL) 50 mg DAILY PO 06/18/24 12:00 07/18/24 11:59 06/18/24 13:08 50 MG Nitroglycerin (Nitrostat) 0.4 mg PROTOCOL PRN SL CHEST PAIN 06/18/24 01:00 07/18/24 00:59 Ondansetron HCl (zoFRAN 4MG INJ) 4 mg Q6H PRN IV NAUSEA/VOMITING 06/18/24 01:00 07/18/24 00:59 Sacubitril/ Valsartan (Entresto 24 Mg-26 Mg Tablet) 1 each BID PO 06/18/24 21:00 07/18/24 20:59 DIAGNOSTICS / RADIOLOGY: [ ] ASSESSMENT: AICD shock evaluation POA Atrial fibrillation with RVR and atrial flutter POA Coronary artery disease with cardiac stent x3 POA Pacer /AICD status POA CHF POA Hypertension POA Hyperlipidemia POA PLAN: We will admit patient in medical telemetry We will start on heart healthy diet We will replace electrolytes as needed per protocol We will start on famotidine 20 mg p.o. daily for GI prophylaxis We will add prn medication for fever,pain,cough , nausea and vomiting We will reconcile home meds once medlist available AICD interrogated in the ER We will seek Cardiology consultation We will request labs in am Further orders to follow depending on above results Case discussed with attending physician and came up with above treatment and plan of care. VLADIMIR VASQUEZ MD June 18, 2024 15:32
--- NOTE | 2024-06-18 17:40 | NUR ---
Patient transferred to room 228 Addendum: 06/18/24 at 1803 by JASMINE ALEJANDRO RN RN Spouse Florentin Chacon notified of transfer
--- NOTE | 2024-06-18 17:50 | NUR ---
I received patient from [facility], report given by Keysha CERDA med/surg. Patient has is being monitored via telemetry pack. Amiodarone protocol started.
[2024-06-18] MEDS: AMIOdarone 150MG VIAL 150 MG in DEXTROSE 5%-WATER 100 ML IV SCH (17:57)
[2024-06-18] MEDS: AMIOdarone 150MG/100ML BAG 100 ML ONE (18:05)
[2024-06-18] MEDS: AMIODARONE 360MG/200ML BAG 200 ML ONE (18:06)
[2024-06-18] MEDS ORDERED: COMPOUND IV MISC 1 EACH IVSOLN MISC PRN (18:30)
[2024-06-18] MEDS ORDERED: COMPOUND IV REFRIGERATED 1 EACH IVSOLN MISC PRN (18:30)
[2024-06-18] MEDS: SACUBITRIL/VALSARTAN 1 EACH TABLET PO SCH (20:05)
[2024-06-18] MEDS: AMIOdarone 200 MG TABLET PO SCH (21:16)
[2024-06-18] MEDS: AMIODARONE 540 MG/D5W 300ML (0.5MG/MIN) IV SCH (23:51)
[2024-06-19 03:50] VITALS: BP 114/64; PULSE 88; RESP 20; TEMP 97.7
[2024-06-19 04:11] VITALS: BP 132/74; PULSE 61; RESP 18; TEMP 98.2
[2024-06-19 07:00] VITALS: O2SAT 96
--- NOTE | 2024-06-19 07:06 | PN ---
[facility] Cardiology Progress Note CARDIOLOGY PROGRESS NOTE JUNE 19, 2024 Problems: 1. Multiple inappropriate PCD shocks in the setting of atrial fibrillation with rapid ventricular response 2. Remote myocardial infarction and stenting in 2012 3. Ischemic cardiomyopathy 4. [place] dual-chamber defibrillator implant with a Quadra assura device 5. COPD 6. Paroxysmal atrial fibrillation 7. Chronic anticoagulation with the apixaban The patient had received two shocks from her device. Both showed atrial fibrillation with rapid ventricular response near 200. Blood pressure is rangi ng between 1015 and 130 systolic. Heart rate has been in the 60s. The patient has been loaded with amiodarone overnight per protocol and has been initiated on amiodarone 400 mg b.i.d.. She has had no recurrent shocks. Potassium on admission was 4.0 magnesium 2.1. Troponins has been normal x2. in addition to amiodarone the patient continues on apixaban 2.5 mg b.i.d. famotidine furosemide metoprolol succinate and Entresto. Her device has been reprogrammed to a higher rate cutoff for VT VF zones. A copy of this note and a copy of the defibrillator reprogramming printout will be provided to the patient take home. Her dose of amiodarone will be reduced to 200 mg b.i.d.. 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 HI WHITE MD June 19, 2024 07:06
[2024-06-19] MEDS ORDERED: AMIO200T68 PO (07:13)
[2024-06-19 08:00] VITALS: BP 128/65; PULSE 61; RESP 16; TEMP 97.8
[2024-06-19] MEDS: furoSEMIDE 20 MG TABLET PO SCH (09:21)
[2024-06-19] MEDS: AMIOdarone 200 MG TABLET PO SCH (09:21)
--- NOTE | 2024-06-19 12:02 | DS ---
Discharge Summary Hospital Course Summary: Patient is an84 female with a significant cardiac history, including congestive heart failure with an AICD, hypertension, hyperlipidemia, prior myocardial infarction, and coronary artery disease with3 stents placed in 2012. She presented to the emergency department after experiencing multiple abnormal sh ocks from AICD, which he noted occurred particularly when lifting her upper extremities. Upon admission, interrogation of the device revealed that the socks were inappropriate and occurred in the setting of atrial fibrillation with rapid ventricular response. She was started on an amiodarone drip per hospital protocol for rate control and rhythm stabilization. As her clinical condition improved, to successfully transitioned to oral amiodarone at a dose 400 mg twice daily. Cardiology was consulted and recommended reprogramming of the device to raise ventricular rate detection thresholds [id number] beats per minute to 165 beats per minute in order to reduce the likelihood of future inappropriate shocks. A device pharmacy services representative completed the reprogramming, and the patient was educated on her new device settings. She remained hemodynamically stable throughout her hospital stay, with no further shocks reported, and was deemed safe for discharge with appropriate follow-up arranged. Patient was given prescription for amiodarone 200 mg twice daily and instructions to follow up with her primary care physician in 3-5 days and her primary cardiology in 1-2 weeks. Senior Systems Programmer(s): Cardiology Procedure(s): [place] [address] [address] IMAGING REPORT Signed PATIENT: RAMA NAIR MR#: [id number] : 1940 SEX: F AGE: 84 LOCATION: [facility] ORDER 14 STATUS: [facility] ER REPORT#: [id number] SERVICE 11 REASON: Dyspnea/SOB ORDERING PHYSICIAN: AMEE MITCHELL MD PROCEDURE: CXR1VW - CHEST 1VW Exam Type: CHEST 1VW Clinical Information: Dyspnea/SOB Comparison: None Findings: The lungs are clear of infiltrates. The heart is enlarged in size. The bony and soft tissue structures of the chest are unremarkable. Left cardiac pacemaker is noted with leads in place. Impression: Clear lungs. DICTATED BY: VICKI AGUILERA MD DATE: 06/17/241812 ELECTRONICALLY SIGNED BY: VICKI AGUILERA MD DATE: 06/17/241815 Assessment/Plan: ASSESSMENT: AICD shock evaluation POA Atrial fibrillation with RVR and atrial flutter POA Coronary artery disease with cardiac stent x3 POA Pacer /AICD status POA CHF POA Hypertension POA Hyperlipidemia POA [place] dual-chamber defibrillator implant with a Quadra assura device Discharge Instructions: Follow up primary care physician in 3-5 days. Follow up with primary cardiology in 1-2 weeks. Home Medications: Reported Medications Apixaban (Eliquis) 2.5 Mg Tablet, 1 TAB PO BID for 30 Days, #60 TAB 0 Refills 06/18/24 Cholecalciferol (Vitamin D3) (Vitamin D3) 250 Mcg (29014 Unit) Capsule, 1 CAP PO DAILY for 30 Days, #30 CAP 0 Refills 06/18/24 Metoprolol Succinate (Metoprolol Succinate) 50 Mg Tab.er.24h, 1 TAB PO BID for 30 Days, #30 TAB 0 Refills 06/18/24 Sertraline HCl (Sertraline HCl) 50 Mg Tablet, 1 TAB PO DAILY for 30 Days, #30 TAB 0 Refills 06/18/24 Aspirin (Aspirin EC) 81 Mg Tablet.dr, 1 TAB PO DAILY for 30 Days, #30 TAB 0 Refills 06/18/24 Sacubitril/Valsartan (Entresto 24 mg-26 mg Tablet) 24 Mg-26 Mg Tablet, 1 TAB PO BID for 30 Days, #60 TAB 0 Refills 06/18/24 Empagliflozin (Jardiance) 10 Mg Tablet, 10 MG PO DAILY, TAB 06/18/24 Ubidecarenone (Coq10) 50 Mg Tab.chew, 100 MG PO AM, TAB.CHEW 06/18/24 Atorvastatin Calcium (LIPITOR) 80 Mg Tablet, 1 TAB PO DAILY for 30 Days, #30 TAB 0 Refills 06/18/24 Gabapentin (Gabapentin) 100 Mg Capsule, 300 MG PO TID, CAP 06/18/24 Ranolazine (Ranolazine ER) 500 Mg Tab.er.12h, 1 TAB PO BID for 30 Days, #60 TAB 0 Refills 06/18/24 New Medications: Amiodarone HCl (Amiodarone HCl) 200 Mg Tablet 200 MG PO BID, #60 TAB 3 Refills Continued Medications: Apixaban (Eliquis) 2.5 Mg Tablet 1 TAB PO BID for 30 Days, #60 TAB 0 Refills Aspirin (Aspirin EC) 81 Mg Tablet.dr 1 TAB PO DAILY for 30 Days, #30 TAB 0 Refills Atorvastatin Calcium (Lipitor) 80 Mg Tablet 1 TAB PO DAILY for 30 Days, #30 TAB 0 Refills Cholecalciferol (Vitamin D3) (Vitamin D3) 250 Mcg (99077 Unit) Capsule 1 CAP PO DAILY for 30 Days, #30 CAP 0 Refills Empagliflozin (Jardiance) 10 Mg Tablet 10 MG PO DAILY, TAB Gabapentin (Gabapentin) 100 Mg Capsule 300 MG PO TID, CAP Metoprolol Succinate (Metoprolol Succinate) 50 Mg Tab.er.24h 1 TAB PO BID for 30 Days, #30 TAB 0 Refills Ranolazine (Ranolazine ER) 500 Mg Tab.er.12h 1 TAB PO BID for 30 Days, #60 TAB 0 Refills Sacubitril/Valsartan (Entresto 24 mg-26 mg Tablet) 24 Mg-26 Mg Tablet 1 TAB PO BID for 30 Days, #60 TAB 0 Refills Sertraline HCl (Sertraline HCl) 50 Mg Tablet 1 TAB PO DAILY for 30 Days, #30 TAB 0 Refills Ubidecarenone (Coq10) 50 Mg Tab.chew 100 MG PO AM, TAB.CHEW Time spent arranging discharge: 1-30 minutes ATTESTATION BY PHYSICIAN I have seen and examined the patient. I reviewed the documentation, medical decision making, and treatment plan as noted by the resident provider above. I agree with the findings and plan of care. Leo Ramirez MD, PRIYA N June 19, 2024 11:59
--- NOTE | 2024-06-19 12:20 | NUR ---
PATIENT LEFT WITHOUT BEING DISMISSED. TELE PACK, HEPARIN LOCK AND GOWN FOUND IN ROOM. PATIENT LEFT WITH HER AFTER DR NUÑEZ GAVE HER. HER PRESCRIPTION
--- NOTE | 2024-06-19 12:31 | NUR ---
DR NUÑEZ INFORMED OF PATIENT LEAVING WITHOUT BEING DISMISSED. PATIENT REFUSED TO HAVE TELEMETRY PACK ON ALL MORNING
--- NOTE | 2024-06-22 13:47 | NUR ---
Transitional Phone Call Spoke to patient, states "I'm doing okay." States picked up medications and "started taking them;" no questions or concerns. States already set up appointment with PCP and cardiology follow up appointment, patient did not divulge names of doctors, dates or times. No questions or concerns at this time.
== END 2024-06-19 12:00 | disposition left against medical advice (07) | DRG 309 ==
LOC: EDH 16:51 → EDHIP 06-18 00:53 → 4DH 06-18 02:04 → 2DH 06-18 17:43
PROVIDERS: ADMIT Internal Medicine; ATTEND Internal Medicine
DX: I48.0 Paroxysmal atrial fibrillation (principal); D68.69 Other thrombophilia; I50.42 Chronic combined systolic (congestive) and diastolic (congestive) heart failure; I49.3 Ventricular premature depolarization; I48.92 Unspecified atrial flutter; I11.0 Hypertensive heart disease with heart failure; E78.00 Pure hypercholesterolemia, unspecified; I25.5 Ischemic cardiomyopathy; J44.9 Chronic obstructive pulmonary disease, unspecified; Z53.29 Procedure and treatment not carried out because of patient's decision for other reasons; E78.5 Hyperlipidemia, unspecified; I25.10 Atherosclerotic heart disease of native coronary artery without angina pectoris; I25.2 Old myocardial infarction; Z95.810 Presence of automatic (implantable) cardiac defibrillator; Z79.01 Long term (current) use of anticoagulants; Z79.899 Other long term (current) drug therapy; Z90.710 Acquired absence of both cervix and uterus; Z95.5 Presence of coronary angioplasty implant and graft
CPT/HCPCS: 36415; 71045; 80048; 80053; 82550; 83735; 83880; 84484; 85025; 93005; 99285; G0378; J0282; J7060; J0283